=== PATIENT | female | born 1990 | race Caucasian/White ===

== ENCOUNTER → 2017-10-12 13:53 | Outpatient (CLI) | payer OTHER, SELFPAY ==
[2017-10-16 11:06] LABS: HPV Reflexed? NOT INDICATED
== END ==
PROVIDERS: Visit Provider Obstetrics & Gynecology
DX: Z12.4 Encounter for screening for malignant neoplasm of cervix (principal)
CPT/HCPCS: 88175; G0145

== ENCOUNTER → 2020-06-09 | Outpatient (CLI) | payer MEDICAID, SELFPAY ==
[2016-06-02 14:48] VITALS: BMI 22.8
[2020-06-16 14:40] LABS: HPV Reflexed? NOT INDICATED
== END | disposition home or self-care (01) ==
LOC: LABSPEC 13:24
PROVIDERS: PCP Family Medicine; Visit Provider Student in an Organized Health Care Education/Training Program
DX: Z12.4 Encounter for screening for malignant neoplasm of cervix (principal)
CPT/HCPCS: 88175; G0145

== ENCOUNTER → 2020-06-18 12:57 | Outpatient (CLI) | payer MEDICAID, SELFPAY ==
[2016-06-02 14:48] VITALS: BMI 22.8
[2020-06-20 12:07] LABS: Chlamydia By Nucleic Acid AMP Negative (Negative)
[2020-06-20 12:49] LABS: Gonococcus By Nucleic Acid AMP Negative (Negative)
== END ==
PROVIDERS: PCP Family Medicine; Visit Provider Student in an Organized Health Care Education/Training Program
DX: Z30.430 Encounter for insertion of intrauterine contraceptive device (principal)
CPT/HCPCS: 87491; 87591

== ENCOUNTER 2022-10-20 18:05 | Emergency (ER) | payer OTHER, MEDICAID, SELFPAY ==
[2022-10-20 18:07] VITALS: BP 150/104; PULSE 91; RESP 18; TEMP 36.3; O2SAT 97; BMI 59.3
--- NOTE | 2022-10-20 19:03 | EX.ED.DYSGE1 ---
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 boulardii)) 250 mg PO DAILY 08/07/20 [History Last Taken Unknown] fexofenadine 180 mg tablet (Emerita Allergy) 180 mg PO DAILY 08/07/20 [History Last Taken Unknown] lisinopril 10 mg tablet 10 mg PO DAILY 08/07/20 [History Last Taken Unknown] sertraline 50 mg tablet 50 mg PO DAILY 08/07/20 [History Last Taken Unknown] cholecalciferol (vitamin D3) 1,250 mcg (50,000 unit) capsule 1,250 mcg PO QWEEK #12 caps 10/18/21 [Rx Last Taken Unknown] levothyroxine 88 mcg tablet 88 mcg PO DAILY #90 tabs 05/05/22 [Rx Last Taken Unknown] sulfamethoxazole 800 mg-trimethoprim 160 mg tablet (Bactrim DS) 1 tab PO BID 7 days #14 tabs 10/20/22 [Rx Last Taken Unknown] Allergy/AdvReac Type Severity Reaction Status Date / Time acetaminophen [From Vicodin] AdvReac Nausea/Vom/ Verified 10/20/22 18:06 Diarrhea hydrocodone bitartrate AdvReac Nausea/Vom/ Verified 10/20/22 18:06 [From Vicodin] Diarrhea Family History Other Anxiety Cancer Colon cancer Depression Hypertension Osteoporosis Surgical History h/o gallbladder removed Social History Smoking Status: Never smoker alcohol intake: current alcohol intake frequency: 0-2 drinks per day substance use type: does not use frequency: 1-2 times per week EXAM Physical Exam Const Vital Signs: 10/20/22 18:07 10/20/22 19:47 Temperature 97.3 F L 98.1 F Temperature Source Temporal Pulse Rate 91 85 Respiratory Rate 18 16 Blood Pressure 150/104 H 135/88 H Blood Pressure Mean 119 Pulse Ox 97 100 Oxygen Delivery Method Room Air [facility] [place] Narrative Medical decision making narrative: HISTORY OF PRESENT ILLNESS: 31-year-old female here with right calf wound. Notes that started Monday. Notes she went to urgent care received antibiotics. She received cefdinir is on day 1 of . REVIEW OF SYSTEMS: Pertinent positives: Wound Pertinent negatives: Fever PHYSICAL EXAM: Nursing triage notes reviewed, Vital signs reviewed Constitutional: please see mdm HENT: MMM Eyes: Pupils equal round and reactive to light, Extraocular muscles intact Neck: No stridor, no JVD, full neck ROM Lungs: Clear to auscultation, No wheezing or rales. No increased work of breathing, no conversational dyspnea, no accessory muscle use, no nasal flaring. No respiratory distress noted Heart: Regular rate and rhythm, No murmurs, No rubs and No gallops, 2+ distal pulses (radial, femoral, posterior tibial) in all extremities Abdomen: Soft, there is no tenderness, rigidity, rebound or guarding, no obvious peritoneal signs, no palpable pulsatile abdominal masses, no auscultated abdominal bruit : No CVAT Extremities: No edema Neuro: No focal neurological deficits, cranial nerves II through XII intact, 5/5 strength in all extremities. Intact sensation to light touch in all extremities, 2+ reflexes bilateral patella tendons. Normal gait. No ataxia. Skin: Approximately 3 x 3 cm area of redness to the posterior lateral popliteal fossa, no crepitus bullae, no fluctuance or induration MEDICAL DECISION MAKING: Chief Complaint: Wound External records reviewed: No recent imaging of the involved extremity Factors affecting care: history of hypothyroidism Social determinants of health: none History obtained from others: none Consults: none ALL IMAGES (IF OBTAINED) HAVE BEEN PERSONALLY REVIEWED AND INTERPRETED BY MYSELF. [facility] Narrative: The patient was hemodynamically stable, afebrile, nontoxic-appearing. Exam consistent with likely cellulitis. No evidence of necrotizing fasciitis. Patient is currently on cefdinir. I changes to Bactrim to have more appropriate MRSA coverage. Encouraged patient continue take antibiotics and to follow with her primary care physician for outpatient evaluation The patient and/or family, caregivers express understanding. The patient and/or family, caregivers agrees with the plan. Total critical care time today provided was at least 0 minutes. This excludes separately billable procedures. Critical care time (if documented) is secondary to the patient having high probability of clinically significant/life threatening deterioration in the patient's condition which required my urgent intervention. Shared decision making: I will have a discussion with the patient and or visitors regarding risk/benefits of further testing or admission. They will be made aware of of the risk/benefits inherent in this decision they will be given the opportunity to voice understanding. Discharge Plan Triage Chief Complaint: Wound Check ED Provider: Carlos Cespedes Dx/Rx/DC Orders Clinical Impression: Cellulitis Instructions: Cellulitis Dc Prescriptions: New sulfamethoxazole-trimethoprim [Bactrim DS] 800-160 mg tablet 1 tab PO BID 7 Days Qty: 14 0RF No Action sertraline 50 mg tablet 50 mg PO DAILY lisinopril 10 mg tablet 10 mg PO DAILY fexofenadine [Emerita Allergy] 180 mg tablet 180 mg PO DAILY Saccharomyces boulardii [Daily Probiotic (S. boulardii)] 250 mg capsule 250 mg PO DAILY Rx Instructions: swallow whole ciprofloxacin HCl 500 MG tablet 500 mg PO BID L norgest/e.estradiol-e.estrad [Camrese Lo] 1 EACH tablets,dose pack,3 month 1 ea PO DAILY cholecalciferol (vitamin D3) 1,250 mcg (50,000 unit) capsule 1,250 mcg PO QWEEK Qty: 12 0RF levothyroxine 88 mcg tablet 88 mcg PO DAILY Qty: 90 1RF Primary Care Provider: Ashlee Lomeli Referrals: Ashlee Lomeli DO [Primary Care Provider] - Activity Restrictions/Additional Instructions: Thank you for trusting us with your care today! Please take Tylenol (2 pills, 650 mg), ibuprofen (2 pills, 400 mg) every 6 hours as needed for pain and fever control. Please take antibiotics to course complete. Please return to the emergency department if your symptoms change or worsen. Specifically he cannot tolerate antibiotic by mouth. If your redness increases suddenly over the matter of hours. Please follow with your primary care physician for further outpatient evaluation and management. Disposition Disposition: Home, Self Care Discharge Date/Time: 10/20/22 19:49
[2022-10-20] MEDS: Ibuprofen 200 MG Tablet 400 MG PO (19:41)
[2022-10-20] MEDS: Smz/Tmp Ds Tablet 1 TABLET PO (19:42)
[2022-10-20 19:47] VITALS: BP 135/88; PULSE 85; RESP 16; TEMP 36.7; O2SAT 100
== END 2022-10-20 19:49 | disposition home or self-care (01) ==
PROVIDERS: Emergency Provider Emergency Medicine; PCP Internal Medicine; Visit Provider Emergency Medicine
DX: L03.115 Cellulitis of right lower limb (principal); I10 Essential (primary) hypertension; E06.3 Autoimmune thyroiditis; E03.9 Hypothyroidism, unspecified; Z79.890 Hormone replacement therapy; Z79.899 Other long term (current) drug therapy
CPT/HCPCS: 99283

== ENCOUNTER → 2024-04-02 | Outpatient (CLI) | payer OTHER, SELFPAY ==
[2024-04-02 11:24] LABS: ALB/GLOB Ratio 0.9 RATIO (0.9-2.4); AST(SGOT) 19 U/L (15-37); Alanine Aminotransfer ALT/SGPT 33 U/L (13-56); Albumin, Serum 3.6 g/dL (3.2-5.0); Alkaline Phosphatase 67 U/L (45-117); Anion Gap 7 (5-15); BUN 6 mg/dL (7-18); BUN/Creat Ratio 9.8 RATIO (10-20); Calcium,Total 8.7 mg/dL (8.5-10.1); Chloride 107 mmol/L (98-107); Creatinine, Serum 0.61 mg/dL (0.55-1.02); EST Glomerular Filtration Rate 120 mL/min (>60); Est Glom Filt Rate - Afr Amer 145 mL/min (>60); Globulin 3.9 g/dL (2.2-4.2); Glucose 117 mg/dL (74-106); Protein, Total 7.5 g/dL (6.4-8.2); Sodium Level 137 mmol/L (136-145); T4 Free Direct 0.75 ng/dL (0.76-1.46)
== END | disposition home or self-care (01) ==
LOC: BWCLAB 09:50
PROVIDERS: PCP Internal Medicine; Referring Provider Nurse Practitioner Family; Visit Provider Nurse Practitioner Family
DX: E03.8 Other specified hypothyroidism (principal); E06.3 Autoimmune thyroiditis
CPT/HCPCS: 36415; 80053; 84439; 84443

== ENCOUNTER → 2024-04-03 | Outpatient (CLI) | payer OTHER, SELFPAY ==
[2024-04-10 16:06] LABS: HPV APTIMA, High Risk Negative (Negative)
== END | disposition home or self-care (01) ==
LOC: LABSPEC 08:35
PROVIDERS: PCP Internal Medicine; Referring Provider Nurse Practitioner Family; Visit Provider Nurse Practitioner Family
DX: Z12.4 Encounter for screening for malignant neoplasm of cervix (principal)
CPT/HCPCS: 87624; 88175; G0145

== ENCOUNTER → 2024-05-31 | Outpatient (CLI) | payer OTHER, SELFPAY ==
[2024-05-31 12:52] LABS: Absolute Lymphocyte Count 1.39 X10^3/uL (0.83-4.51); Absolute Neutrophil Count 5.6 X10^3/uL (2.0-7.7); Basophil# 0.06 X10^3/uL; Basophil% 0.7 % (0-1); Eosinophil# 0.23 X10^3/uL; Eosinophils% 2.8 % (0-5); Hematocrit 43.1 % (37-47); Hemoglobin 14.4 g/dL (12.0-15.0); Lymphocyte # 1.39 X10^3/ul (0.83-4.51); Mean Corp Hgb Conc 33.4 g/dL (32-36); Mean Corpuscular Hgb 28.9 pg (27.0-32.0); Mean Corpuscular Volume 86.4 fL (81-99); Mean Platelet Vol. 10.3 fl (6.2-12.0); Monocyte# 0.86 X10^3/uL; Monocyte% 10.5 % (0-10); NRBC Flagged by Analyzer 0 % (0-5); Neutrophil # 5.62 X10^3/uL (2.7-7.7); Neutrophil % 68.6 % (47-70); Platelet Count 397 K/mm3 (150-450); RBC Distribution Width CV 12.4 % (11.6-14.6); RBC Distribution Width SD 38.9 fl (35.1-43.9); Red Blood Count 4.99 M/mm3 (4.2-5.4); White Blood Count 8.2 K/mm3 (4.4-11.0)
[2024-05-31 13:03] LABS: ALB/GLOB Ratio 0.9 RATIO (0.9-2.4); AST(SGOT) 14 U/L (15-37); Alanine Aminotransfer ALT/SGPT 27 U/L (13-56); Albumin, Serum 3.8 g/dL (3.2-5.0); Alkaline Phosphatase 59 U/L (45-117); Anion Gap 6 (5-15); BUN 10 mg/dL (7-18); BUN/Creat Ratio 15.9 RATIO (10-20); Calcium,Total 8.8 mg/dL (8.5-10.1); Chloride 107 mmol/L (98-107); Cholesterol 168 mg/dL (200); Creatinine, Serum 0.63 mg/dL (0.55-1.02); EST Glomerular Filtration Rate 116 mL/min (>60); Est Glom Filt Rate - Afr Amer 140 mL/min (>60); Ferritin 36 ng/mL (8-252); Globulin 4.2 g/dL (2.2-4.2); Glucose 103 mg/dL (74-106); High Density Lipoprotein 48 mg/dL; Iron 86 ug/dL (50-170); Iron Binding Capacity,Total 330 ug/dL (250-450); Potassium 4.1 mmol/L (3.5-5.1); Sodium Level 137 mmol/L (136-145); T4 Free Direct 0.98 ng/dL (0.76-1.46); Triglycerides 101 mg/dL; Very Low Density Lipoprotein 20 mg/dL (5-40)
[2024-06-01 04:07] LABS: Thyroid Peroxidase AB 203 IU/mL (0-34)
[2024-06-01 10:36] LABS: Vitamin D,25 Hydroxy 28.1 ng/mL
== END | disposition home or self-care (01) ==
LOC: BIMLAB 10:14
PROVIDERS: PCP Internal Medicine; Referring Provider Internal Medicine; Visit Provider Internal Medicine
DX: E03.8 Other specified hypothyroidism (principal); E06.3 Autoimmune thyroiditis; K90.0 Celiac disease
CPT/HCPCS: 36415; 80053; 80061; 82306; 82728; 83540; 83550; 84439; 84443; 85025; 86376

== ENCOUNTER → 2024-06-10 | Outpatient (CLI) | payer OTHER, SELFPAY ==
[2024-06-10 12:03] LABS: Prothrombin Time (Protime)PT. 13.1 SECONDS (11.7-14.9)
[2024-06-10 12:10] LABS: Vitamin B12 465 pg/mL (211-911)
[2024-06-13 20:08] LABS: Immunoglobulin A 320 mg/dL (87-352); Vitamin A, Retinol 44.4 ug/dL (18.9-57.3); t-Transglutaminase IgA 68 U/mL (0-3)
== END | disposition home or self-care (01) ==
PROVIDERS: PCP Internal Medicine
DX: K90.0 Celiac disease (principal)
CPT/HCPCS: 36415; 82607; 82784; 83516; 84590; 85610

== ENCOUNTER 2024-08-15 09:08 | Day surgery (SDC) | payer OTHER, SELFPAY ==
[2024-08-15] VITALS (8 sets, daily range): BP systolic 110–132; BP diastolic 82–95; PULSE 90–109; RESP 16–18; TEMP 36.6–36.8; O2SAT 96–99; BMI 29.7
[2024-08-15 09:34] LABS: Internal QC Validated? YES +Cl - CLEAR BKGD; Pregnancy, Urine Negative Negative
--- NOTE | 2024-08-15 09:51 | PCM.PRE.AN2 ---
ASA Classification* ASA Classification ASA Classification: 2 Assessment & Plan Anesthesia* Anesthesia Assessment Anesthesia Assessment: Discussed sedation and/or anesthesia options, risks, benefits, and alternatives with patient/parents/legal guardian/POA. Questions invited. The patient/parents/legal guardian/POA seems to understand and agrees to proceed with anesthesia plan. Reviewed the physical assessment, medical history, allergy history and patient home medications list prior to surgery/procedure/anesthetic and documented any changes. Performed airway and anesthesia risk assessments. Anesthesia Type Anesthesia Type: MAC History Source History Obtained from:: Patient and Chart Anesthesia Focused Assessment* Temperature: 98.2 F Pulse Rate: 90 Blood Pressure: 132/88 Respiratory Rate: 16 Pulse Ox: 99 Oxygen Delivery Method: Room Air Airway Assessment Mouth opens: >3 cm Mallampati Score: III Teeth Condition: Caps/Crowns (Patient has several crowns on her molars. They are all tight.) Neck Range of motion (ROM): Full ROM Focused Labs Anesthesia Preop lab: CBC WBC 8.2 K/mm3 (4.4-11.0) 05/31/24 10:15 05/31/24 RBC 4.99 M/mm3 (4.2-5.4) 05/31/24 10:15 05/31/24 Hgb 14.4 g/dL (12.0-15.0) 05/31/24 10:15 05/31/24 Hct 43.1 % (37-47) 05/31/24 10:15 05/31/24 Plt Count 397 K/mm3 (150-450) 05/31/24 10:15 05/31/24 CHEMISTRY Potassium 4.1 mmol/L (3.5-5.1) 05/31/24 10:15 05/31/24 Sodium 137 mmol/L (136-145) 05/31/24 10:15 05/31/24 BUN 10 mg/dL (7-18) 05/31/24 10:15 05/31/24 Creatinine 0.63 mg/dL (0.55-1.02) 05/31/24 10:15 05/31/24 Glucose 103 mg/dL (74-106) 05/31/24 10:15 05/31/24 TSH 3.790 uIU/mL (0.358-3.740) H 05/31/24 10:15 05/31/24 COAG PT 13.1 SECONDS (11.7-14.9) 06/10/24 11:24 06/10/24 Urine Test Negative Negative 08/15/24 08:25 08/15/24 Pre-Assessment Diagnosis/Proposed Procedure Planned Operative Procedure(s): EGD Anesthesia History 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 When Was Last Pacemaker Check QUESTION #4 FULL TEXT: You/Your Family Experience fever (hyperthermia) with Anesthesia Last Oral Intake Last Oral intake: Last Oral Intake NPO since 19:00 08/15/24 09:41 Meds taken in AM with sips of No 08/15/24 09:41 water? Meds patient instructed to take am of surgery PONV PONV - process safety engineer: PONV - process safety engineer Female Yes 08/09/24 12:41 HX of Motion Sickness No 08/09/24 12:41 HX of N/V After Surgery No 08/09/24 12:41 Non-Smoker Yes 08/09/24 12:41 Duration of Surgery greater No 08/09/24 12:41 than 60 minutes Number of Risk Factors 2 08/09/24 12:41 PONV Score Moderate Risk 08/09/24 12:41 Height & Weight Height & Weight: Anesthesia: Height & Weight Height 5 ft 3 in 08/15/24 09:41 Weight: 76 kg 08/15/24 09:41 Body Mass Index (BMI) 29.7 08/15/24 09:41 Respiratory Assessment Respiratory Assessment - process safety engineer: Respiratory Tract Infection Hx - process safety engineer Hx Respiratory Tract Infection No 08/09/24 12:41 STOP Sleep Apnea STOP Sleep Apnea - process safety engineer: STOP Sleep Apnea - process safety engineer Hx Hypertension No 08/09/24 12:41 Hx Sleep Apnea No 08/09/24 12:41 CPAP BIPAP Do you snore loudly (louder No 08/09/24 12:41 than talking or can be heard Do you often feel tired/ No 08/09/24 12:41 fatigued/ sleepy during daytime? Has anyone observed you stop No 08/09/24 12:41 breathing during sleep? STOP Results Negative 08/09/24 12:41 QUESTION #5 FULL TEXT : Do you snore loudly (louder than talking or can be heard through closed doors)? Tobacco Use History Tobacco Use History - process safety engineer: Tobacco Use History - process safety engineer Tobacco Use Smoking Status Never smoker 08/09/24 12:41 Hx Tobacco Use No 08/09/24 12:41 Years Smoking Packs Smoked per Day Smoking Cessation Date was within the last 15 years Hx Smoking Cessation Date Hx Smoking Cessation Counseling Hematologic Medial History Hematologic Hx - process safety engineer: Hematologic Medical Hx - director auto Hx of Blood Transfusion No 08/09/24 12:41 Hx of Transfusion in last 3 No 08/09/24 12:41 Months Date of Last Transfusion (if within last 3 months) Ever experience any problems No 08/09/24 12:41 with transfusion(s)? Specify any problems Hx of Preganancy in last 3 No 08/09/24 12:41 Months Nurse Filling Out Transfusion JZOLLINGE 08/09/24 12:41 & Questions: Date: 08/09/24 08/09/24 12:41 Time: 12:42 08/09/24 12:41 Patient unable to answer at this time (ie. 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 Celiac disease High blood pressure Frequent headaches Gastrointestinal problem Seasonal allergies Home Medications ?Medication ?Instructions ?Recorded ?Last Taken ?Type dupilumab subcut .[id number] 04/01/24 07/31/24 History clobetasol 0.05 % scalp solution 1 applic topical QDAY 05/31/24 Unknown History pantoprazole 20 mg tablet,delayed 20 mg PO BID #60 tabs 06/10/24 Unknown Rx release Allergy/AdvReac Type Severity Reaction Status Date / Time No Known Allergies Allergy Verified 08/15/24 09:39 Family History Other Anxiety Cancer Colon cancer Depression Hypertension Osteoporosis Surgical History (Updated 08/15/24 @ 09:[address] 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 current occupational exposures/hazards: No pets and animals: Yes pets and animals: cat(s) and dog(s) history of recent travel: Yes ([place]) out of state: Yes out of country: No sexually active: Yes Smoking Status: Never smoker second hand exposure: No alcohol intake: current alcohol intake frequency: a few times a week substance use type: does not use diet: gluten free well-balanced diet: daily or most days caffeine: Yes Type: carbonated beverages and coffee eating out: 1-3 times/week during the past year weight has: increased > 10 lbs what type of physical activity do you participate in: walking frequency: 1-2 times per week duration: 15-30 minutes/day abeba/mormon: None seatbelt use: always do you feel safe at home: Yes additional social history: - Rahul Review of Systems (Anesthesia) ROS Narrative System reviewed and no additional complaints, except as documented.
--- NOTE | 2024-08-15 10:00 | EGD_PTH ---
PATIENT: MARK HERRON LOC: EN U#:[id number] AGE/SX: 33/F ROOM: RE08/15/[address]: Dr. El Garcia DO : 1990 BED: DIS: 08/15/2024 SPEC #: [id number] RECD: 08/15/24 12:17 STATUS: ANDRAE REZaire #: [id number] MEREDITH: 08/15/24 10:[address]: El Garcia DEPT: SURGICAL PATHOLOGY RECD BY: Jose Antonio Villa ENTERED: 08/15/24 12:33 SP TYPE: EGD BIOPSY STEPHANIE DR: Dr. Galina Urias MD Tissues: A - Duodenum, NOS B - Gastric mucous membrane Procedures: Immunohistochemical Stains Surgery Specimen Level IV HEADER OPERATION: EGD with biospy PRE-OP DIAGNOSIS: Celiac disease TISSUE SUBMITTED: A- Duodenum biopsy, B- Gastric body biopsy MICROSCOPIC DIAGNOSIS A. Small bowel, duodenum, biopsy: * Benign small bowel mucosa with villous blunting, areas of acute duodenitis and focally increased intraepithelial lymphocytes (See note) Note: The histologic findings are etiologically nonspecific and can be seen in a setting of celiac disease (gluten sensitive enteropathy), inflammatory bowel disease (favor Crohn's disease), tropical sprue, medication injury (Olmesartan, for example), bacterial overgrowth, stasis related changes, or infection, among others. If celiac disease is a clinical concern, correlation with celiac disease specific antibodies and genetic permissiveness (HLA-DQ!2 and/or HLA-DQ8) is recommended, if not already performed. B. Stomach, gastric body, biopsy: * Oxyntic mucosa with chronic focal active inflammation * The Helicobacter pylori immunostain is negative MICROSCOPIC DESCRIPTION Slides are reviewed. These tests were developed and their performance characteristics determined by [facility]. They may not have been cleared or approved by the U.S. Food and Drug Administration. The FDA has determined that such clearance or approval is not necessary. The above immunohistochemical/dualISH markers are ordered and reviewed by the Pathologist. GROSS DESCRIPTION A. Received in formalin in a container labeled with the patient's name, date of , and duodenum biopsy are 2 tejeda-pink fragments of mucosal tissue measuring 0.3 x 0.3 x 0.3 cm and 0.6 x 0.3 x 0.2 cm. Submitted in toto in A1. B. Received in formalin in a container labeled with the patient's name, date of , and gastric body biopsy for H. pylori and path are multiple tejeda-pink fragments of mucosal tissue measuring 1.0 x 0.7 x 0.2 cm in aggregate. Submitted in toto in B1. B 08/16/2024 CPT:27385v1,57996
--- NOTE | 2024-08-15 10:53 | PCM.HP.STD ---
HPI - General General Date of Admission: 08/15/24 Date of Service: 08/15/24 Chief Complaint: celiac disease HPI Narrative MARK HERRON, is a 33 F who presents to the office today for the diagnosis of celiac disease. She reports occasional nausea and throat clearing, but relates these symptoms to recent sinus and respiratory infections. States last EGD was 2016. Urgent care visit 11..24 for posterior L rib pain that radiated to anterior stomach area; given meloxicam and prednisone, advised to avoid ibuprofen, ok to use acetaminophen. She reports that the anterior epigastric pain is mainly present after eating a large meal or if she chooses to lay supine. States that she will have some bloating on occasion. She denies difficulty chewing and swallowing, heartburn, abdominal cramping, diarrhea, constipation, hematochezia, and melena. She reports daily complete BMs without straining. 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 Celiac disease High blood pressure Frequent headaches Gastrointestinal problem Seasonal allergies Home Medications ?Medication ?Instructions ?Recorded ?Last Taken ?Type dupilumab subcut .[id number] 04/01/24 07/31/24 History clobetasol 0.05 % scalp solution 1 applic topical QDAY 05/31/24 Unknown History pantoprazole 20 mg tablet,delayed 20 mg PO BID #60 tabs 06/10/24 Unknown Rx release Allergy/AdvReac Type Severity Reaction Status Date / Time No Known Allergies Allergy Verified 08/15/24 09:39 Family History Other Anxiety Cancer Colon cancer Depression Hypertension Osteoporosis Surgical History History of esophagogastroduodenoscopy (EGD) h/o gallbladder removed Social History adopted: No household members: spouse housing: house number of children: 0 current occupational status: employed 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 current occupational exposures/hazards: No pets and animals: Yes pets and animals: cat(s) and dog(s) history of recent travel: Yes ([place]) out of state: Yes out of country: No sexually active: Yes Smoking Status: Never smoker second hand exposure: No alcohol intake: current alcohol intake frequency: a few times a week substance use type: does not use diet: gluten free well-balanced diet: daily or most days caffeine: Yes Type: carbonated beverages and coffee eating out: 1-3 times/week during the past year weight has: increased > 10 lbs what type of physical activity do you participate in: walking frequency: 1-2 times per week duration: 15-30 minutes/day abeba/pentecostal: None seatbelt use: always do you feel safe at home: Yes additional social history: - Rahul SHELLEY Constitutional Constitutional: Denies fatigue, fever(s), poor appetite, weight gain or weight loss Gastrointestinal Gastrointestinal: Denies belching, bloating, change in bowel habits, change in stool character, chewing difficulty, coffee ground emesis, constipation, cramping, diarrhea, dyspepsia, dysphagia, early satiety, excessive flatus, fecal incontinence, heartburn, hematemesis, hematochezia, hemorrhoids, loose stools, melena, nausea, odynophagia, rectal bleeding, tenesmus, vomiting or weight changes Vital Signs Vital Signs Vital Signs: 08/15/24 09:41 08/15/24 09:41 08/15/24 09:59 Temperature 98.2 F 98.2 F Temperature Source Temporal Pulse Rate 90 90 Respiratory Rate 16 16 Respiratory Pattern Normal Blood Pressure 132/88 H 132/88 H Blood Pressure Mean 102 Blood Pressure Source Monitor Blood Pressure Position Sitting Blood Pressure Location Left Arm Pulse Ox 99 99 Oxygen Delivery Method Room Air Room Air Weight Weight: 167 lb 8.821 oz Body Mass Index (BMI) 29.7 Physical Exam Const alert, oriented x3, no apparent distress and healthy appearing General Appearance: cooperative GI normal to inspection, nondistended, normoactive bowel sounds, soft to palpation, non-tender and non-distended Percussion: normal to percussion Rectal Exam: deferred Results Lab / Micro Data Labs: Laboratory Results - last 24 hr 08/15/24 08:25: Urine Test Negative Assessment & Plan Assessment/Plan (1) Celiac disease: PLAN: Assessment and Plan Assessment and Plan (1) Celiac disease: Status: Chronic Orders: Orders Immunoglobulin A Today K90.0 - Celiac disease t-Transglutaminase IgA Today K90.0 - Celiac disease Vitamin B12 Today K90.0 - Celiac disease Vitamin A, Retinol Today K90.0 - Celiac disease Prothrombin Time w/INR Today K90.0 - Celiac disease Miscellaneous Lab Procedure Today K90.0 - Celiac disease Medications: New pantoprazole 20 mg PO BID 60 tabs 2RF Plan MARK HERRON, is a 33 F who presents to the office today for establishment with [facility] to follow chronic diagnosis of celiac disease, and reports occasional nausea, epigastric to LUQ abdominal pain and throat clearing. Differential diagnoses include: gastritis, acid reflux, inflammation from gluten ingestion. Discussed care plan with her and she is agreeable: schedule EGD, place on cancellation move up list due to current scheduling timing pantoprazole 20mg PO BID until EGD completed blood for gluten tolerance/sensitivities blood for vitamin levels/INR due to malabsorptive disease call with results provided anti-inflammatory diet information office FU 2wks after EGD
--- NOTE | 2024-08-15 11:23 | PCM.POST.ANE ---
Anesthesia: Postop Eval I Current Vital Signs Temperature: 98.1 F Pulse Rate: 98 Blood Pressure: 112/83 Respiratory Rate: 18 Pulse Ox: 96 Oxygen Delivery Method: Room Air Assessment Airway patent: Yes Spontaneous unlabored respirations: Yes Mental status: Asleep nausea: No Vomiting: No Anesthesia Complication: No Fluid Hydration Crystalloid volume administer (ml): 30 Total IV fluid infused: 30 Progress Note Anesthesia document: Postop Eval 1 completed: Yes
--- NOTE | 2024-08-15 11:50 | OP.CCLET_ITS ---
08/15/2024 Galina Urias MD [address] [place] [address] [place] [address] Re : Upper GI endoscopy procedure for Amado Alfaro Dear Dr. Urias This procedure was performed on July. My impressions and recommendations are as follows: Impressions : - Normal esophagus. - Congestive gastropathy. Biopsied. - Duodenal mucosal changes seen, diagnostic of celiac disease. Biopsied. Recommendations : - Discharge patient to home. - Resume previous diet. - Continue present medications. - Await pathology results. My findings are described in the full procedure note, which is enclosed. If I can be of further assistance, please feel free to contact me at . Sincerely, El Garcia, 08/15/2024 11:50:02 AM This report has been signed electronically.
--- NOTE | 2024-08-15 11:50 | OP.EGD_ITS ---
Patient Name: Amado Alfaro Procedure Date: 08/15/2024 10:57 AM Date of : 1990 Age: 33 Procedure: Upper GI endoscopy Indications: Epigastric abdominal pain, Failure to respond to medical treatment, Refractory celiac disease Providers: El Garcia DO Medicines: Monitored Anesthesia Care Patient Profile: This is a 33 year old female. Refer to note in patient chart for documentation of history and physical. Patient has symptoms of chronic abdominal cramping, chronic abdominal distention and chronic epigastric abdominal pain. Complications: No immediate complications. Procedure: Pre-Anesthesia Assessment: - Prior to the procedure, a History and Physical was performed, and patient medications and allergies were reviewed. The patient is competent. The risks and benefits of the procedure and the sedation options and risks were discussed with the patient. All questions were answered and informed consent was obtained. Patient identification and proposed procedure were verified by the physician in the pre-procedure area. Mental Status Examination: alert and oriented. Airway Examination: normal oropharyngeal airway and neck mobility. Respiratory Examination: clear to auscultation. CV Examination: normal. Prophylactic Antibiotics: The patient does not require prophylactic antibiotics. Prior Anticoagulants: The patient has taken no anticoagulant or antiplatelet agents except for NSAID medication. ASA Grade Assessment: II - A patient with mild systemic disease. After reviewing the risks and benefits, the patient was deemed in satisfactory condition to undergo the procedure. The anesthesia plan was to use monitored anesthesia care (MAC). Immediately prior to administration of medications, the patient was re-assessed for adequacy to receive sedatives. The heart rate, respiratory rate, oxygen saturations, blood pressure, adequacy of pulmonary ventilation, and response to care were monitored throughout the procedure. The physical status of the patient was re-assessed after the procedure. After obtaining informed consent, the endoscope was passed under direct vision. Throughout the procedure, the patient's blood pressure, pulse, and oxygen saturations were monitored continuously. The Endoscope was introduced through the mouth, and advanced to the third part of the duodenum. Small bowel enteroscopy was deemed necessary. The upper GI endoscopy was accomplished without difficulty. The patient tolerated the procedure well. Scope In: 11:08:36 AM Scope Out: 11:14:19 AM Total Procedure Duration Time 0 hours 5 minutes 43 seconds Findings: The examined esophagus was normal. Diffuse moderately congested mucosa was found in the entire examined stomach. Biopsies were taken with a cold forceps for histology. Biopsies were taken with a cold forceps for Helicobacter pylori testing. Verification of patient identification for the specimen was done. Estimated blood loss was minimal. Decreased folds were found in the duodenal bulb, decreased folds were found in the first portion of the duodenum, decreased folds were found in the second portion of the duodenum, flattening was found in the duodenal bulb, flattening was found in the first portion of the duodenum, scalloped mucosa was found in the duodenal bulb and thickened folds were found in the duodenal bulb. Biopsies were taken with a cold forceps for histology. Verification of patient identification for the specimen was done. Estimated blood loss was minimal. Impression: - Normal esophagus. - Congestive gastropathy. Biopsied. - Duodenal mucosal changes seen, diagnostic of celiac disease. Biopsied. Recommendation: - Discharge patient to home. - Resume previous diet. - Continue present medications. - Await pathology results. Procedure Code(s): --- Professional --- 43162, Small intestinal endoscopy, enteroscopy beyond second portion of duodenum, not including ileum; with biopsy, single or multiple CPT copyright 2021 [employer]. All rights reserved. The codes documented in this report are preliminary and upon pick up review may be revised to meet current compliance requirements. El Garcia DO 08/15/2024 11:50:02 AM This report has been signed electronically. Number of Addenda: 0 Note Initiated On: 08/15/2024 10:57 AM
--- NOTE | 2024-08-15 14:45 | PCM.POSTANE2 ---
Anesthesia Postop Eval I Sum Postop Eval Completion status Anesthesia document: Postop Eval 1 completed: Yes Anesthesia Postop Eval I Summary Anesthesia Postop Eval I Summary: Anesthesia Postop Eval I: Assessment Summary Airway patent Yes 08/15/24 11:24 [email or web address] Spontaneous unlabored Yes 08/15/24 11:24 [email or web address] respirations Mental status Asleep 08/15/24 11:24 [email or web address] nausea No 08/15/24 11:24 [email or web address] Vomiting No 08/15/24 11:24 [email or web address] Anesthesia Postop Eval I: Fluid Summary Crystalloid volume administer 30 08/15/24 11:24 [email or web address] (ml) Colloids volume administered ( ml) Blood Product volume administered (ml) Total IV fluid infused 30 08/15/24 11:24 [email or web address] Anesthesia Postop Eval I: Summary Notes Anesthesia Complication No 08/15/24 11:24 [email or web address] Anesthesia Complication Comment: Post-operative progress note Anesthesia: Postop Eval II Evaluation Mental status: Awake and Calm Pain Level: 0 nausea: No Vomiting: No Complications Anesthesia Complication: No
== END 2024-08-15 12:10 | disposition home or self-care (01) ==
LOC: EN 09:10 → AC 09:12
PROVIDERS: Anesthesiology; PCP Internal Medicine; Referring Provider Internal Medicine; Visit Provider Internal Medicine Gastroenterology
PROC: 0DJ08ZZ Inspection of Upper Intestinal Tract, Via Natural or Artificial Opening Endoscopic (ICD-10-PCS; CPT 43235; principal; 2024-08-15 09:55)
DX: K29.50 Unspecified chronic gastritis without bleeding (principal); K90.0 Celiac disease; I10 Essential (primary) hypertension; Z79.899 Other long term (current) drug therapy
CPT/HCPCS: 44361; 81025; 88305; 88342; A4216; J2405

== ENCOUNTER → 2024-09-12 | Outpatient (CLI) | payer OTHER, SELFPAY ==
--- NOTE | 2024-09-12 08:10 | US_ITS ---
PROCEDURE: ABD LIMITED W/ ELASTOGRAPHY REASON FOR EXAM: ABD PAIN COMPARISON: None. TECHNIQUE: Right upper quadrant abdominal ultrasound. [facility]ica ElastQ Imaging shear wave elastography for non-invasive assessment of liver tissue stiffness. [facility]ica EPIQ Elite. FINDINGS: LIVER: Size: Unremarkable Length: 13.3 cm cm Echotexture: Diffusely echogenic suggesting fatty infiltration Contour: Normal Lesions: There is a 2.4 cm x 1.8 cm 2.6 cm hypoechoic nodular density in the right lobe. This is suggestive of an hemangioma. Elastography: EQI Med: 7.7 kPa EQI Med Ian: 1.59 m/s IQR/Med: 23.5 %* GALLBLADDER: Surgically absent. COMMON BILE DUCT: Normal measuring 3.7 mm. PANCREAS: Normal Visualized portions of the right kidney are unremarkable. No right upper quadrant ascites. US/ABD Limited w/ Elastography IMPRESSION: [id number] HEPATIC FIBROSIS Reference Values: SRU <1.37 m/s (5.7kPa): No to mild fibrosis 1.37 m/s - 2.2 m/s: Moderate to severe fibrosis >2.2 m/s (15kPa): Significant fibrosis / cirrhosis METAVIR Score F2 or higher: 1.34 m/s (5.7kPa) F3 or higher: 1.55 m/s (7.3kPa) F4: 1.80 m/s (10kPa) * If the IQR/Med is >30%, the variance in the measurements is a large and the a ccuracy of the measurement may be in question. Reading Location: [facility]
== END | disposition home or self-care (01) ==
PROVIDERS: PCP Internal Medicine
DX: K76.0 Fatty (change of) liver, not elsewhere classified (principal)
CPT/HCPCS: 76705; 76981

== ENCOUNTER → 2024-09-18 | Outpatient (CLI) | payer OTHER, SELFPAY ==
--- NOTE | 2024-09-18 07:55 | CT_ITS ---
EXAM: CT Abdomen and Pelvis With Intravenous Contrast CLINICAL INDICATION: ABDOMINAL PAIN, REFRACTORY CELIAC DISEASE TECHNIQUE: Axial computed tomography images of the abdomen and pelvis with intravenous contrast. This CT exam was performed using one or more of the following dose reduction techniques: automated exposure control, adjustment of the mA and/or kV according to patient size, and/or use of iterative reconstruction technique. COMPARISON: No relevant prior studies available. FINDINGS: LUNG BASES: Unremarkable. No mass. No consolidation. MEDIASTINUM: Small esophageal hiatal hernia. ABDOMEN: LIVER: Hepatomegaly with fatty infiltration. GALLBLADDER AND BILE DUCTS: Unremarkable. No calcified stones. No ductal dilation. PANCREAS: Unremarkable. No mass. No ductal dilation. SPLEEN: Unremarkable. No splenomegaly. ADRENALS: Unremarkable. No mass. KIDNEYS AND URETERS: Unremarkable. No stones within either kidney. No hydronephrosis. STOMACH AND BOWEL: Fecal retention in the colon consistent with constipation. Colonic diverticulosis without acute diverticulitis. No obstruction. PELVIS: APPENDIX: No findings to suggest acute appendicitis. BLADDER: Unremarkable. No mass. REPRODUCTIVE: Unremarkable as visualized. ABDOMEN and PELVIS: INTRAPERITONEAL SPACE: Unremarkable. No free air. No significant fluid collection. BONES/JOINTS: No acute fracture. No dislocation. SOFT TISSUES: Umbilical hernia containing fat. VASCULATURE: Unremarkable. No abdominal aortic aneurysm. LYMPH NODES: Unremarkable. No enlarged lymph nodes. CT/Abdomen/Pelvis WITH Contrast IMPRESSION: 1. Hepatomegaly with fatty infiltration. 2. Small esophageal hiatal hernia. 3. No obstructive uropathy. 4. Fecal retention in the colon consistent with constipation. 5. Umbilical hernia containing fat. 6. Colonic diverticulosis without acute diverticulitis. Reading Location[facility]
== END | disposition home or self-care (01) ==
LOC: CT 07:37
PROVIDERS: PCP Internal Medicine
DX: K90.0 Celiac disease (principal)
CPT/HCPCS: 74177; Q9967

== ENCOUNTER → 2024-09-27 | Outpatient (CLI) | payer OTHER, SELFPAY ==
[2024-09-30 14:08] LABS: Endomysial Antibody IgA Positive (Negative); Immunoglobulin A 321 mg/dL (87-352); t-Transglutaminase IgA 23 U/mL (0-3)
[2024-10-01 13:08] LABS: Thyroid Peroxidase AB 206 IU/mL (0-34)
== END | disposition home or self-care (01) ==
LOC: LAB 10:36
PROVIDERS: PCP Internal Medicine
DX: K90.0 Celiac disease (principal); E06.3 Autoimmune thyroiditis; E03.8 Other specified hypothyroidism
CPT/HCPCS: 36415; 82784; 83516; 84439; 84443; 86255; 86376

== ENCOUNTER → 2024-11-08 | Outpatient (CLI) | payer OTHER, SELFPAY ==
[2024-11-08 13:51] LABS: AST(SGOT) 21 U/L (<=31); Alanine Aminotransfer ALT/SGPT 20 U/L (<=34); Albumin, Serum 4.1 g/dL (3.5-5.0); Alkaline Phosphatase 62 U/L (35-104); Anion Gap 13 (5-15); BUN 8 mg/dL (4-19); BUN/Creat Ratio 14.6 RATIO (10-20); CORTISOL PM 7.92 ug/dL (2.68-10.50); Calcium,Total 8.9 mg/dL (7.6-11.0); Carbon Dioxide 18.8 mmol/L (21.0-32.0); Chloride 105 mmol/L (98-108); Ferritin 39 ng/mL (22-378); Globulin 3.1 g/dL (2.2-4.2); Glucose 138 mg/dL (70-99); Potassium 3.9 mmol/L (3.3-5.1)
[2024-11-08 14:16] LABS: CRP 5.24 mg/L (0.0-3.0); Iron 99 ug/dL (50-170); Iron Binding Capacity,Total 333 ug/dL (250-450); Iron Binding Capacity,Unsat 234 ug/dL (228-428); LDH 164 U/L (84-246); Lipase 31 U/L (13-75)
[2024-11-11 15:08] LABS: Immunoglobulin A 288 mg/dL (87-352)
[2024-11-12 13:08] LABS: Vitamin D 1,25-Dihydroxy 54.8 pg/mL (24.8-81.5)
== END | disposition home or self-care (01) ==
LOC: LAB 12:01
PROVIDERS: PCP Internal Medicine; Referring Provider Internal Medicine Gastroenterology; Visit Provider Internal Medicine Gastroenterology
DX: K90.0 Celiac disease (principal)
CPT/HCPCS: 36415; 80053; 82533; 82652; 82728; 82784; 83516; 83540; 83550; 83615; 83690; 85652; 86140; 86255

== ENCOUNTER 2024-11-27 08:05 | Outpatient (RCR) | payer OTHER, SELFPAY | END 2024-11-28 23:59 | LOC: NS 08:05 | PROVIDERS: PCP Internal Medicine; Referring Provider Internal Medicine; Visit Provider Internal Medicine | DX: Z71.3 Dietary counseling and surveillance (principal); K90.0 Celiac disease | CPT/HCPCS: 97802 ==

== ENCOUNTER → 2024-12-20 | Outpatient (CLI) | payer OTHER, SELFPAY ==
[2024-12-20 16:33] LABS: CPK Total, Creatine Kinase 70 U/L (24-195); CRP 8.99 mg/L (0.0-3.0)
[2024-12-26 13:08] LABS: Anti-Chromatin <0.2 AI (0.0-0.9); Anti-Jo <0.2 AI (0.0-0.9); Anti-dsDNA Ab 1 IU/mL (0-9); Egg, Whole <0.10 kU/L (Class 0); Mussels <0.10 kU/L (Class 0); SJOGREN'S Anti-SS-A test 0.2 AI (0.0-0.9); SJOGREN'S Anti-SS-B test < 0.2 AI (0.0-0.9)
[2024-12-26 14:09] LABS: ACCA 35 units (0-90); ALCA 47 units (0-60); AMCA 48 units (0-100); Albumin 3.6 g/dL (2.9-4.4); Cytoplasmic Ab (C-ANCA) <1:20 titer (Neg:<1:20); Dopamine, Pl <10.0 pg/mL (0.0-36.7); Epinephrine, Pl 20.5 pg/mL (0.0-55.4); Gamma Globulin 1.4 g/dL (0.4-1.8); IgG, Quant 1310 mg/dL (586-1602); Immunoglobulin A 302 mg/dL (87-352); Immunoglobulin G, Subclass 1 584 mg/dL (248-810); Immunoglobulin G, Subclass 2 576 mg/dL (130-555); Immunoglobulin G, Subclass 3 124 mg/dL (15-102); Immunoglobulin G, Subclass 4 10 mg/dL (2-96); Immunoglobulin M 87 mg/dL (26-217); Norepinephrine, Pl 253 pg/mL (115-524); PROEL- TOTAL PROTEIN 7.1 g/dL (6.0-8.5); Perinuclear Ab (P-ANCA) <1:20 titer (Neg:<1:20)
== END | disposition home or self-care (01) ==
LOC: LAB 14:17
PROVIDERS: PCP Internal Medicine; Referring Provider Internal Medicine Gastroenterology; Visit Provider Internal Medicine Gastroenterology
DX: E06.3 Autoimmune thyroiditis (principal); E03.8 Other specified hypothyroidism; K90.0 Celiac disease; R10.9 Unspecified abdominal pain
CPT/HCPCS: 36415; 82085; 82384; 82550; 82784; 82785; 82787; 83516; 84165; 84439; 84443; 85652; 86003; 86005; 86036; 86037; 86140; 86225; 86235; 86334; 86376; 86431; 86671

== ENCOUNTER 2024-12-26 17:06 | Emergency (ER) | payer OTHER, SELFPAY ==
[2024-12-26 17:06] VITALS: BP 149/110; PULSE 98; RESP 18; TEMP 36.6; O2SAT 98; BMI 30.6
--- NOTE | 2024-12-26 17:27 | EKG12_ITS ---
Test Reason : CP Blood Pressure : */* mmHG Vent. Rate : 93 BPM Atrial Rate : 93 BPM P-R Int : 148 ms QRS Dur : 74 ms QT Int : 334 ms P-R-T Axes : 50 9 18 degrees QTcB Int : 415 ms Normal sinus rhythm with sinus arrhythmia Possible Left atrial enlargement Borderline ECG Confirmed by NIKUNJ MATA ([id number]), electronic news gathering editor SOLANGE BOBBY ([id number]) on 12/31/2024 6:28:51 AM Referred By: LUKE Confirmed By: NIKUNJ MATA
--- NOTE | 2024-12-26 17:27 | RAD_ITS ---
PROCEDURE: CHEST PA AND LATERAL 12/26/2024 REASON FOR EXAM: CHEST PAIN TECHNIQUE: CHEST PA AND LATERAL COMPARISON: None. FINDINGS: LUNGS AND PLEURA: The lungs are clear. No pleural effusion or pneumothorax. HEART AND MEDIASTINUM: The heart size and mediastinal contours are normal. BONES: No acute osseous abnormality. RAD/Chest PA and Lateral IMPRESSION: NEGATIVE CHEST Reading Location: [id number]
--- NOTE | 2024-12-26 17:49 | ED.VIS.CHEST ---
HPI <JESSIKA Perea - Last Filed: 12/26/24 21:42> History of Present Illness Chief Complaint: Chest Pain Narrative Narrative: Patient presenting today with chest pressure she has had intermittently since last . She reports that she also seems to experience pressure to the right side of her neck. Her symptoms seem to be worse when she is bending down. Her symptoms are not exertional. She denies any cardiac history. 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 She denies fevers, chills, dyspnea, nausea, and vomiting. 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 Celiac disease High blood pressure Frequent headaches Gastrointestinal problem Seasonal allergies Home Medications ?Medication ?Instructions ?Recorded ?Last Taken ?Type dupilumab subcut .[id number] 04/01/24 07/31/24 History clobetasol 0.05 % scalp solution 1 applic topical QDAY 05/31/24 Unknown History hydrocortisone 2.5 % topical cream 1 applic topical BID PRN rash 11/15/24 Unknown Rx #453.6 grams scopolamine base 1 mg over 3 days 1 patch transdermal Q3D PRN motion 11/15/24 Unknown Rx transdermal patch sickness #4 ea Synthroid 25 mcg tablet 25 mcg PO QDAY #30 tabs 12/26/24 Unknown Rx (levothyroxine) Allergy/AdvReac Type Severity Reaction Status Date / Time acetaminophen (From Vicodin) AdvReac Nausea Verified 12/26/24 17:07 hydrocodone (From Vicodin) AdvReac Nausea Verified 12/26/24 17:07 Family History Other Anxiety Cancer Colon cancer Depression Hypertension Osteoporosis Surgical History History of esophagogastroduodenoscopy (EGD) h/o gallbladder removed Social History adopted: No household members: spouse housing: house number of children: 0 current occupational status: employed 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 current occupational exposures/hazards: No pets and animals: Yes pets and animals: cat(s) and dog(s) history of recent travel: Yes ([place]) out of state: Yes out of country: No sexually active: Yes Smoking Status: Never smoker second hand exposure: No alcohol intake: current alcohol intake frequency: a few times a week substance use type: does not use diet: gluten free well-balanced diet: daily or most days caffeine: Yes Type: carbonated beverages and coffee eating out: 1-3 times/week during the past year weight has: increased > 10 lbs what type of physical activity do you participate in: walking frequency: 1-2 times per week duration: 15-30 minutes/day abeba/cheondoism: None seatbelt use: always do you feel safe at home: Yes additional social history: - Rahul SHELLEY <JESSIKA Perea - Last Filed: 12/26/24 21:42> ROS ED Constitutional Constitutional ED: Denies chills or fever(s) Cardiovascular Cardiovascular: Reports other Details: Chest pressure Respiratory/Chest Respiratory/Chest: Denies cough or dyspnea Gastrointestinal Gastrointestinal: Denies abdominal pain, nausea or vomiting Musculoskeletal Musculoskeletal: Denies arthralgias or myalgias Integumentary Denies rash Neurologic Neurologic: Denies weakness EXAM <JESSIKA Perea - Last Filed: 12/26/24 21:42> Physical Exam Const Vital Signs: 12/26/24 17:06 12/26/24 17:24 12/26/24 20:00 Temperature 98 F Temperature Source Temporal Pulse Rate 98 Respiratory Rate 18 Respiratory Effort Normal Non-Labored Blood Pressure 149/110 H Blood Pressure Mean 123 Pulse Ox 98 Oxygen Delivery Method Room Air Room Air 12/26/24 20:00 12/26/24 21:00 12/26/24 21:45 Temperature 98.1 F Temperature Source Pulse Rate 96 91 84 Respiratory Rate 18 19 H 18 Respiratory Effort Blood Pressure 121/83 H Blood Pressure Mean 95 Pulse Ox 98 99 99 Oxygen Delivery Method Room Air Room Air Positive well nourished, well developed and no apparent distress General Appearance ED: well developed HEENT Reports normocephalic and head/scalp atraumatic Mouth ED: Yes moist mucous membranes normal Eyes PERRL and EOMs intact bilaterally Neck full ROM, no lymphadenopathy and supple Neck Narrative: No tenderness to palpation to the neck, no obvious mass Chest Wall inspection of chest normal Resp normal respiratory effort and clear to auscultation bilaterally Cardio regular rate and regular rhythm GI soft to palpation, non-tender, non-distended and no masses Back/Spine normal ROM and normal to inspection Extremity normal to inspection and full ROM Neuro oriented x3, CN's II-XII intact bilaterally, moves all extremities, no focal motor deficits and no sensory deficits noted Sensorium / Orientation: awake and alert Psych mental status grossly normal and thought process normal Skin no rashes or lesions noted and no wounds <Wojciech Michelle MD - Last Filed: 12/26/24 22:00> Physical Exam Const Vital Signs: 12/26/24 17:06 12/26/24 17:24 12/26/24 20:00 Temperature 98 F Temperature Source Temporal Pulse Rate 98 Respiratory Rate 18 Respiratory Effort Normal Non-Labored Blood Pressure 149/110 H Blood Pressure Mean 123 Pulse Ox 98 Oxygen Delivery Method Room Air Room Air 12/26/24 20:00 12/26/24 21:00 12/26/24 21:45 Temperature 98.1 F Temperature Source Pulse Rate 96 91 84 Respiratory Rate 18 19 H 18 Respiratory Effort Blood Pressure 121/83 H Blood Pressure Mean 95 Pulse Ox 98 99 99 Oxygen Delivery Method Room Air Room Air [facility] <JESSIKA Perea - Last Filed: 12/26/24 21:42> [facility] Narrative Medical decision making narrative: Patient presenting today due to concerns for pressure across her chest that radiates to the right side of her neck she has had intermittently over the last week. She is PERC negative, low suspicion for PE. Her CBC, BMP, and delta troponin are largely unremarkable. EKG negative for ischemia. Chest x-ray negative for cardiopulmonary abnormality. She does not have any tenderness, lymphadenopathy, or masses when palpating the neck. She was given Toradol here for her symptoms. On reexamination she is doing well. I recommended she have close outpatient follow-up with her PCP, she will be discharged home in stable condition. Lab Data Attestation: I reviewed the patient's lab results. Labs: Laboratory Results - last 24 hr 12/26/24 12/26/24 17:40 19:45 WBC 11.9 H RBC 4.88 Hgb 14.2 Hct 40.9 MCV 83.8 MCH 29.1 MCHC 34.7 RDW Std Deviation 36.0 RDW Coeff of Sakshi 11.9 Plt Count 393 MPV 10.7 Immature Gran % (Auto) 0.300 Neut % (Auto) 70.2 H Lymph % (Auto) 16.9 L [place] % (Auto) 8.7 Eos % (Auto) 2.9 Baso % (Auto) 1.0 Absolute Neuts (auto) 8.4 H Absolute Lymphs (auto) 2.01 Nucleated RBC % 0 Sodium 136 Potassium 3.9 Chloride 102 Carbon Dioxide 21.4 Anion Gap 12 BUN 7 Creatinine 0.55 L Estim Creat Clear Calc 144.22 Est GFR (MDRD) Non-Af 124 BUN/Creatinine Ratio 12.1 Glucose 124 H Calcium 9.0 Troponin T High Sens < 6 Troponin T Hi Sens 2 Hr < 6 Radiography X-Ray: Read by ED Physician Diagnostic Testing: Clinical Impression(s) from Imaging Studies Chest X-Ray 12/26/24 17:27 IMPRESSION: NEGATIVE CHEST Reading Location: [facility] EKG Initial EKG: Comments: 93 bpm, normal sinus rhythm, no ST elevation, interpreted by attending ED physician, T wave inversions to V1 and V2 <Wojciech Michelle MD - Last Filed: 12/26/24 22:00> [facility] Lab Data Labs: Laboratory Results - last 24 hr 12/26/24 12/26/24 17:40 19:45 WBC 11.9 H RBC 4.88 Hgb 14.2 Hct 40.9 MCV 83.8 MCH 29.1 MCHC 34.7 RDW Std Deviation 36.0 RDW Coeff of Sakshi 11.9 Plt Count 393 MPV 10.7 Immature Gran % (Auto) 0.300 Neut % (Auto) 70.2 H Lymph % (Auto) 16.9 L [place] % (Auto) 8.7 Eos % (Auto) 2.9 Baso % (Auto) 1.0 Absolute Neuts (auto) 8.4 H Absolute Lymphs (auto) 2.01 Nucleated RBC % 0 Sodium 136 Potassium 3.9 Chloride 102 Carbon Dioxide 21.4 Anion Gap 12 BUN 7 Creatinine 0.55 L Estim Creat Clear Calc 144.22 Est GFR (MDRD) Non-Af 124 BUN/Creatinine Ratio 12.1 Glucose 124 H Calcium 9.0 Troponin T High Sens < 6 Troponin T Hi Sens 2 Hr < 6 Radiography Diagnostic Testing: Clinical Impression(s) from Imaging Studies Chest X-Ray 12/26/24 17:27 IMPRESSION: NEGATIVE CHEST Reading Location: [facility] Treatment and Re-Evaluation :: Dr. Michelle: I have personally performed a face to face assessment of the patient and have reviewed the ELIZABETH Note. I performed a substantive portion of the visit including all aspects of the following. My altamirano findings include: History is chest pain and pressure, neck pain and pressure as well as right sided head pain and pressure. Exam is afebrile. Vital signs noted. Nontoxic-appearing. Cardiovascular semination regular rate and rhythm. Lungs clear to auscultation bilaterally. Abdomen soft and nontender with positive bowel sounds. Neurological examination nonfocal and nonlateralizing. Medical Decision Making: Chest pain workup pursued. I have low suspicion for pulmonary embolism, and she is PERC negative. Check EKG. Check chest x-ray. Chest x-ray interpreted by myself independently shows no evidence of acute process. I reviewed the radiology report which confirms my independent interpretation. Check labs. I feel she has been ruled out with biomarkers. Discharged to follow-up with primary care. Other additions or changes: [None] Discharge Plan Triage Chief Complaint: Chest Pain ED Midlevel Provider: Eileen Kearney ED Provider: Wojciech Michelle Dx/Rx/DC Orders Clinical Impression: Atypical chest pain Instructions: ED Chest Pain, Noncardiac Prescriptions: No Action dupilumab [Dupixent Pen] subcut .[id number] clobetasol 0.05 % solution 1 applic topical QDAY hydrocortisone 2.5 % cream 1 applic topical BID PRN (Reason: rash) Qty: 453.6 1RF scopolamine base 1 mg over 3 days patch 3 day 1 patch transdermal Q3D PRN (Reason: motion sickness) Qty: 4 0RF levothyroxine [Synthroid] 25 mcg tablet 25 mcg PO QDAY Qty: 30 2RF Primary Care Provider: Galina Urias Referrals: Galina Urias MD [Primary Care Provider] - 5-7 Days Activity Restrictions/Additional Instructions: Follow-up with your PCP and return for any other concerns or worsening symptoms. Print Language: Bengali Disposition Disposition: Home, Self Care Discharge Date/Time: 12/26/24 21:46
[2024-12-26 18:13] LABS: Anion Gap 12 (5-15); BUN 7 mg/dL (4-19); BUN/Creat Ratio 12.1 RATIO (10-20); Calcium,Total 9.0 mg/dL (7.6-11.0); Carbon Dioxide 21.4 mmol/L (21.0-32.0); Chloride 102 mmol/L (98-108); Estimated Creatinine Clearance 144.22 ml/min (50-250); Glucose 124 mg/dL (70-99); Potassium 3.9 mmol/L (3.3-5.1); Troponin T High Sensitivity < 6 ng/L (<=14)
[2024-12-26 18:34] LABS: Hematocrit 40.9 % (37-47); Hemoglobin 14.2 g/dL (12.0-15.0); Immature Granulocytes Count 0.030 X10^3/uL (0.0-0.0); Mean Corp Hgb Conc 34.7 g/dL (32-36); Mean Corpuscular Volume 83.8 fL (81-99); Mean Platelet Vol. 10.7 fl (6.2-12.0); NRBC Flagged by Analyzer 0 % (0-5); Platelet Count 393 K/mm3 (150-450); RBC Distribution Width CV 11.9 % (11.6-14.6); RBC Distribution Width SD 36.0 fl (35.1-43.9); Red Blood Count 4.88 M/mm3 (4.2-5.4); White Blood Count 11.9 K/mm3 (4.4-11.0)
[2024-12-26 20:00] VITALS: PULSE 96; RESP 18; O2SAT 98
[2024-12-26 21:00] VITALS: PULSE 91; RESP 19; O2SAT 99
[2024-12-26 21:25] LABS: Troponin T High Sens 2 HR < 6 ng/L (<=14)
[2024-12-26 21:45] VITALS: BP 121/83; PULSE 84; RESP 18; TEMP 36.7; O2SAT 99
== END 2024-12-26 21:46 | disposition home or self-care (01) ==
PROVIDERS: Physician Assistant; Emergency Provider Emergency Medicine; PCP Internal Medicine; Visit Provider Emergency Medicine
DX: R07.89 Other chest pain (principal); E03.8 Other specified hypothyroidism; Z79.890 Hormone replacement therapy
CPT/HCPCS: 71046; 80048; 84484; 85025; 93005; 96374; 99283

== ENCOUNTER → 2024-12-27 | Outpatient (CLI) | payer OTHER, SELFPAY ==
[2024-12-29 12:08] LABS: Lyme Scn Total Ab w/Rflx Negative (Negative)
== END | disposition home or self-care (01) ==
LOC: LAB 14:46
PROVIDERS: PCP Internal Medicine; Referring Provider Nurse Practitioner Family; Visit Provider Nurse Practitioner Family
DX: R59.1 Generalized enlarged lymph nodes (principal)
CPT/HCPCS: 36415; 86618

== ENCOUNTER 2025-01-01 12:57 | Outpatient (RCR) | payer OTHER, SELFPAY | END 2025-01-28 23:59 | LOC: NS 12:57 | PROVIDERS: PCP Internal Medicine; Referring Provider Internal Medicine; Visit Provider Internal Medicine | DX: Z71.3 Dietary counseling and surveillance (principal); K90.0 Celiac disease | CPT/HCPCS: 97803 ==

== ENCOUNTER → 2025-02-25 | Outpatient (CLI) | payer OTHER, SELFPAY ==
[2025-02-25 12:38] LABS: Hematocrit 43.5 % (37-47); Hemoglobin 14.6 g/dL (12.0-15.0); Immature Granulocytes Count 0.020 X10^3/uL (0.0-0.0); Mean Corp Hgb Conc 33.6 g/dL (32-36); Mean Corpuscular Volume 85.6 fL (81-99); Mean Platelet Vol. 10.2 fl (6.2-12.0); NRBC Flagged by Analyzer 0 % (0-5); Platelet Count 359 K/mm3 (150-450); RBC Distribution Width CV 11.9 % (11.6-14.6); RBC Distribution Width SD 37.3 fl (35.1-43.9); Red Blood Count 5.08 M/mm3 (4.2-5.4); White Blood Count 6.3 K/mm3 (4.4-11.0)
[2025-02-25 13:23] LABS: CRP 11.40 mg/L (0.0-3.0)
[2025-02-26 13:08] LABS: Anti-Chromatin <0.2 AI (0.0-0.9); Anti-Jo <0.2 AI (0.0-0.9); Anti-dsDNA Ab 1 IU/mL (0-9); SJOGREN'S Anti-SS-A test < 0.2 AI (0.0-0.9); SJOGREN'S Anti-SS-B test < 0.2 AI (0.0-0.9)
[2025-02-26 16:09] LABS: Immunoglobulin A 297 mg/dL (87-352)
== END | disposition home or self-care (01) ==
LOC: LAB 12:13
PROVIDERS: PCP Internal Medicine; Referring Provider Nurse Practitioner Family; Visit Provider Nurse Practitioner Family
DX: L50.8 Other urticaria (principal); E03.8 Other specified hypothyroidism; E06.3 Autoimmune thyroiditis; K90.0 Celiac disease
CPT/HCPCS: 36415; 82784; 83516; 84439; 84443; 85025; 85652; 86140; 86225; 86235; 86255; 86431